=== PATIENT | male | born 1955 | race Caucasian/White ===

== ENCOUNTER 2019-01-24 11:57 | Emergency (ER) | payer OTHER ==
[~2019-01-24] VITALS: Ht 170.2 cm; Wt 77.1 kg
[2019-01-24 12:01] VITALS: BP_SYST 121
--- NOTE | 2019-01-24 12:10 | NUR ---
Patient to ER bed 4 to gown for evaluation. Side rails up. Report given to Sue MAGANA.
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
--- NOTE | 2019-01-24 12:14 | NUR ---
ER Dr. Guidry at bedside examining patient.
--- NOTE | 2019-01-24 12:30 | NUR ---
Pt off the unit for ultrasound
--- NOTE | 2019-01-24 13:35 | NUR ---
MARIA LUISA Trent at bedside discussing test results patient.
--- NOTE | 2019-01-24 13:54 | NUR ---
CM called to authorizize lovenox versus admission.
[2019-01-24] MEDS ORDERED: ENOXAPARIN SODIUM 80 MG/0.8 ML SYRINGE SUBCUT ONE (14:00)
--- NOTE | 2019-01-24 14:05 | NUR ---
Spoke with Yady PISANO who will call physician environmental protection inspector to speak with Dr. Guidry.
[2019-01-24 14:15] LABS: BASOPHILS % (AUTO) 0.5 % (0.0-2.0); EOSINOPHILS # (AUTO) 0.1 K/uL (0.0-0.4); EOSINOPHILS % (AUTO) 0.8 % (0.0-4.0); HEMATOCRIT 44.4 % (36-54); HEMOGLOBIN 14.7 g/dL (14.0-18.0); LYMPHOCYTES # (AUTO) 1.1 K/uL (1.0-5.5); LYMPHOCYTES % (AUTO) 11.7 % (20.5-51.5); MEAN CORPUSCULAR HEMOGLOBIN 30 pg (27-31); MEAN CORPUSCULAR HGB CONC 33 % (32-36); MEAN CORPUSCULAR VOLUME 90 fL (79.0-98.0); MONOCYTES # (AUTO) 0.6 K/uL (0.0-1.0); MONOCYTES % (AUTO) 6.7 % (1.7-9.3); NEUTROPHILS # (AUTO) 7.4 K/uL (1.8-7.7); NEUTROPHILS % (AUTO) 80.3 % (40.0-70.0); PLATELET COUNT (AUTO) 287 K/uL (130-430); RED BLOOD CELL COUNT(AUTO) 4.91 MIL/uL (4.2-6.2); RED CELL DISTRIBUTION WIDTH 14.8 % (9.0-15.0); WHITE BLOOD COUNT (AUTO) 9.2 K/uL (4.8-10.8)
[2019-01-24 14:30] LABS: CREATININE 1.07 mg/dL (0.55-1.30); POTASSIUM 3.9 mmol/L (3.5-5.1); PROTHROMBIN TIME 9.8 SECS (9.5-12.5)
[2019-01-24 14:35] LABS: ALBUMIN 3.7 g/dL (3.4-4.8); TOTAL BILIRUBIN 0.5 mg/dL (0.0-1.0)
--- NOTE | 2019-01-24 14:47 | NUR ---
Patient will be accepted at [facility] care of Dr. Weathers #[id number]. Room number and number for report are pending.
--- NOTE | 2019-01-24 15:13 | NUR ---
Yonathan, Firer Boiler, Called patient will be admitted to [facility] Room 302B. Report number [phone]
[2019-01-24 16:23] VITALS: BP_SYST 158
--- NOTE | 2019-01-24 16:23 | NUR ---
Patient to be transferred to [facility]. Is being transferred due to higher level of care. Receiving facility has accepting physician and available space. ER physician has signed transfer form. Patient or responsible green party has agreed to transfer and signed form. Patient belongings inventoried and will be sent with patient. Copy of nursing notes, lab reports, EKG, Physicians Orders and X-rays to be sent with patient. Report called to Andria MAGANA at receiving facility. Receiving physician is DR. Weathers. [facility] ambulance service has been called for transfer. ETA is 30 min.
== END 2019-01-24 16:25 | disposition short-term general hospital (02) ==
LOC: SED 11:57
DX: I82.4Z2 Acute embolism and thrombosis of unspecified deep veins of left distal lower extremity (principal)
CPT/HCPCS: 36415; 73590; 80053; 85025; 85610; 93971; 96372; 99285; J1650